=== PATIENT | female | born 1950 | race Caucasian/White ===

== ENCOUNTER → 2021-12-10 | Outpatient (CLI) | payer MEDICARE | LOC: CT 14:53 | DX: N13.2 Hydronephrosis with renal and ureteral calculous obstruction (principal); R91.1 Solitary pulmonary nodule ==

== ENCOUNTER 2022-01-24 17:20 | Emergency (ER) | payer MEDICARE ==
[2022-01-24 18:51] LABS: HEMOGLOBIN 13.5 gm/dl (12.3-15.3); RED BLOOD COUNT 4.51 M/UL (4.00-5.10)
[2022-01-24 19:32] LABS: BUN/CREATININE RATIO 17 (0-10)
[2022-01-24] MEDS ORDERED: CEFPODOXIME PR200 MG PO (23:06)
== END 2022-01-24 23:20 | disposition home or self-care (01) ==
LOC: ER1 17:20
PROVIDERS: Nurse Practitioner
DX: N13.6 Pyonephrosis (principal); E11.9 Type 2 diabetes mellitus without complications; I10 Essential (primary) hypertension
CPT/HCPCS: 80053; 81001; 83605; 83690; 85025; 87077; 87086; 87186; 96374; 99284; J0696